=== PATIENT | female | born 1985 | race Caucasian/White ===

== ENCOUNTER 2016-12-24 11:03 | Inpatient (IN) | payer MEDICAID ==
[~2016-12-24] VITALS: Ht 170.2 cm; Wt 116.3 kg
[~2016-12-24 11:03] MED LIST: IBUP-1222 PO; NIFE90TA PO; OXYC-302 PO
[2016-12-24] MEDS ORDERED: SODIUM CHLORIDE 0.9% 1,000ML IVBOLUS ONE ×2 (12:30→14:30)
[2016-12-24] MEDS ORDERED: MORPHINE SULFATE 4 MG/ML, 1ML IVPush PRN ×2 (12:30→17:00)
[2016-12-24] MEDS ORDERED: ONDANSETRON 2MG/ML, 2ML IVPush ONE (12:30)
[2016-12-24] MEDS ORDERED: SODIUM CHLORIDE FLUSH 10ML SYR IVF ONE (12:30)
[2016-12-24] MEDS ORDERED: ONDANSETRON 2MG/ML, 2ML ONE (12:59)
[2016-12-24] MEDS ORDERED: MORPHINE SULFATE 4 MG/ML, 1ML ONE (12:59)
[2016-12-24 13:10] LABS: ASPARTATE AMINO TRANSFERASE 11 U/L (15-37); BLOOD UREA NITROGEN 16 mg/dL (7-18)
[2016-12-24 13:15] LABS: PATH.CAST-FLAG NOT PRESENT; SPERM-FLAG NOT PRESENT; SRC-FLAG NOT PRESENT; XTAL-FLAG NOT PRESENT; YLC-FLAG NOT PRESENT
[2016-12-24] MEDS ORDERED: POTASSIUM CHLORIDE 20 MEQ TAB.ER.PRT PO ONE (14:30)
[2016-12-24] MEDS ORDERED: POTASSIUM CHLORIDE 20 MEQ TAB.ER.PRT ONE (14:43)
[2016-12-24 16:11] VITALS: BP 134/78
[2016-12-24] MEDS ORDERED: ACETAMINOPHEN 325 MG TABLET PO PRN (17:00)
[2016-12-24] MEDS ORDERED: ONDANSETRON 2MG/ML, 2ML IVP PRN (17:00)
[2016-12-24] MEDS ORDERED: POLYETHYLENE GLYCOL 17 GM PACKET PO PRN (17:00)
[2016-12-24] MEDS ORDERED: ENALAPRILAT 1.25 MG/ML, 2ML IVPush PRN (17:00)
[2016-12-24] MEDS: HYDROcodone/APAP 5/325 TABLET PO PRN (17:46)
[2016-12-24] MEDS ORDERED: CIPROFLOXACIN LACTATE 200 MG in DEXTROSE 5% 100 ML IV SCH (18:00)
[2016-12-24] MEDS: CEFTRIAXONE PMX 2GM/50ML 50 ML IV SCH (18:23)
[2016-12-24] MEDS: HEPARIN 5,000 UNITS/ML, 1ML SQ SCH (18:24)
[2016-12-24 20:44] VITALS: BP 100/61
[2016-12-24] MEDS: NS + 20MEQ KCL 1,000 ML IV SCH (22:23)
[2016-12-25 00:29] VITALS: BP 101/62
[2016-12-25] MEDS: HYDROcodone/APAP 5/325 TABLET PO PRN ×4 (00:41→23:42)
[2016-12-25] MEDS: ONDANSETRON ODT 4 MG PO PRN ×5 (00:41→23:41)
[2016-12-25] MEDS: HEPARIN 5,000 UNITS/ML, 1ML SQ SCH ×4 (02:30→19:40)
[2016-12-25] MEDS: NS + 20MEQ KCL 1,000 ML IV SCH ×2 (04:54→19:40)
[2016-12-25 05:37] LABS: BLOOD UREA NITROGEN 16 mg/dL (7-18)
[2016-12-25 06:29] LABS: DIFF TOTAL CELLS COUNTED 100 CELL DIFF
[2016-12-25 06:30] LABS: VERIFY COUNTS? YES
[2016-12-25 06:31] LABS: ANISOCYTOSIS 1+
[2016-12-25 06:32] LABS: LARGE PLATELETS 1+
[2016-12-25] MEDS ORDERED: MAGNESIUM SULFATE PMX 2GM/50ML 50 ML IV ONE (07:00)
[2016-12-25 07:41] VITALS: BP 112/74
[2016-12-25] MEDS ORDERED: SODIUM CHLORIDE 0.9% 1,000ML IVBOLUS ONE (08:00)
[2016-12-25] MEDS: SENNA/DOCUSATE TABLET PO SCH (09:00)
[2016-12-25] MEDS ORDERED: CEFDINIR 300 MG CAPSULE PO SCH (09:00)
[2016-12-25 12:52] VITALS: BP 127/82
[2016-12-25] MEDS: CEFTRIAXONE PMX 2GM/50ML 50 ML IV SCH (17:21)
[2016-12-25 20:56] VITALS: BP 116/77
[2016-12-26 02:33] VITALS: BP 109/70
[2016-12-26] MEDS: ONDANSETRON ODT 4 MG PO PRN ×3 (03:37→12:41)
[2016-12-26] MEDS: HYDROcodone/APAP 5/325 TABLET PO PRN ×2 (03:37→08:36)
[2016-12-26] MEDS: NS + 20MEQ KCL 1,000 ML IV SCH (03:37)
[2016-12-26] MEDS: HEPARIN 5,000 UNITS/ML, 1ML SQ SCH ×2 (05:00→12:42)
[2016-12-26 06:23] LABS: BLOOD UREA NITROGEN 14 mg/dL (7-18)
[2016-12-26] MEDS ORDERED: POTASSIUM CHLORIDE 20 MEQ in SODIUM CHLORIDE 0.9% 250 ML IV ONE (07:00)
[2016-12-26] MEDS ORDERED: POTASSIUM CHLORIDE 20 MEQ TAB.ER.PRT PO ONE (07:00)
[2016-12-26] MEDS ORDERED: CEFDINIR 300 MG CAPSULE PO SCH (07:00)
[2016-12-26 08:14] VITALS: BP 111/74
[2016-12-26] MEDS: SENNA/DOCUSATE TABLET PO SCH (08:37)
[2016-12-26] MEDS ORDERED: CEFD300C37 PO (14:05)
[2016-12-26] MEDS ORDERED: ONDA4TAB13 PO (14:05)
[2016-12-26] MEDS ORDERED: POTA10TA90 PO (14:05)
[2016-12-26] MEDS ORDERED: NS + 20MEQ KCL 1,000 ML IV SCH (20:00)
== END 2016-12-26 15:32 | disposition home or self-care (01) | DRG 690 ==
LOC: ED 13:32 → EDIP 14:30 → 3NE 15:56
PROVIDERS: ADMIT Family Medicine; ATTEND Family Medicine
DX: N12 Tubulo-interstitial nephritis, not specified as acute or chronic (principal); E87.1 Hypo-osmolality and hyponatremia; N17.9 Acute kidney failure, unspecified; E87.6 Hypokalemia; N20.0 Calculus of kidney; E86.0 Dehydration; Z88.8 Allergy status to other drugs, medicaments and biological substances; Z87.442 Personal history of urinary calculi
CPT/HCPCS: 36415; 80048; 80053; 81001; 83605; 83735; 85025; 87077; 87086; 87186; 93005; 96361; 96374; 96375; J0696; J1644; J2405; J3480; Q0162; J3475; J7030; J7050

== ENCOUNTER 2017-07-19 06:11 | Inpatient (IN) | payer MEDICAID ==
[~2017-07-19] VITALS: Ht 170.2 cm; Wt 109.6 kg
[~2017-07-19 06:11] MED LIST changes: +CEFD300C37 PO; +ONDA4TAB13 PO; +POTA10TA6 PO
[2017-07-19] MEDS ORDERED: SODIUM CHLORIDE 0.9% 1,000 ML IV ONE (06:47)
[2017-07-19] MEDS ORDERED: SODIUM CHLORIDE FLUSH 10ML SYR IVF ONE ×2 (07:00→14:30)
[2017-07-19] MEDS ORDERED: ONDANSETRON 2MG/ML, 2ML IVPush ONE ×2 (07:00→11:00)
[2017-07-19 07:22] LABS: HEMATOCRIT 44.6 % (34.6-47.8); HEMOGLOBIN 14.8 g/dL (11.7-16.4); WHITE BLOOD COUNT 9.8 x10^3/uL (3.4-10)
[2017-07-19 07:32] LABS: BLOOD UREA NITROGEN 19 mg/dL (7-18)
[2017-07-19] MEDS ORDERED: HYDROmorphone 1 MG/ML, 1ML ONE ×4 (07:35→15:00)
[2017-07-19] MEDS ORDERED: ONDANSETRON 2MG/ML, 2ML ONE ×4 (07:35→17:48)
[2017-07-19] MEDS: HYDROmorphone 1 MG/ML, 1ML IVPush PRN ×2 (07:38→09:18)
[2017-07-19] MEDS ORDERED: HYDROmorphone 1 MG/ML, 1ML IVPush PRN (11:00)
[2017-07-19] MEDS ORDERED: CEFTRIAXONE PMX 1GM/50ML 50 ML IVPB ONE (14:00)
[2017-07-19] MEDS ORDERED: GENTAMICIN 180 MG in SODIUM CHLORIDE 0.9% 100 ML IV ONE (14:00)
[2017-07-19 15:00] VITALS: BP 142/87
[2017-07-19] MEDS ORDERED: CEFTRIAXONE PMX 1GM/50ML 50 ML IV SCH (15:00)
[2017-07-19] MEDS ORDERED: FENTANYL PF 100 MCG/2ML IVPush PRN (15:00)
[2017-07-19] MEDS ORDERED: BISACODYL 10 MG SUPP PR PRN (15:00)
[2017-07-19] MEDS ORDERED: DOCUSATE 100 MG CAPSULE PO PRN (15:00)
[2017-07-19] MEDS ORDERED: LABETALOL 5MG/ML, 20ML IVPush PRN (15:00)
[2017-07-19] MEDS ORDERED: POLYETHYLENE GLYCOL 17 GM PACKET PO PRN (15:00)
[2017-07-19] MEDS ORDERED: ACETAMINOPHEN 325 MG TABLET PO PRN ×2 (15:00→17:30)
[2017-07-19] MEDS: NS + 20MEQ KCL 1,000 ML IV SCH (15:25)
[2017-07-19] MEDS ORDERED: IBUP-1223 PO (15:48)
[2017-07-19] MEDS ORDERED: ACET650S21 PO (15:48)
[2017-07-19 16:15] VITALS: BP 129/84
[2017-07-19] MEDS: ONDANSETRON 2MG/ML, 2ML IVPush PRN (16:31)
[2017-07-19] MEDS ORDERED: MIDAZOLAM 1 MG/ML, 2ML ONE (16:54)
[2017-07-19] MEDS ORDERED: FENTANYL PF 250 MCG/5ML ONE (16:56)
[2017-07-19] MEDS ORDERED: PROMETHAZINE 25 MG/ML, 1ML IV PRN (17:30)
[2017-07-19] MEDS ORDERED: HYDROmorphone 1 MG/ML, 1ML IV PRN (17:30)
[2017-07-19] MEDS ORDERED: PROPOFOL 10 MG/ML, 20ML ONE (17:30)
[2017-07-19] MEDS ORDERED: ONDANSETRON 2MG/ML, 2ML IVPush PRN (17:30)
[2017-07-19] MEDS ORDERED: FENTANYL PF 100 MCG/2ML IV PRN (17:30)
[2017-07-19] MEDS ORDERED: OXYcodone 5 MG/5 ML ORAL.SOL UDC PO PRN (17:30)
[2017-07-19] MEDS ORDERED: DEXAMETHASONE 4 MG/ML, 1ML ONE ×2 (17:31)
[2017-07-19] MEDS ORDERED: FENTANYL PF 100 MCG/2ML ONE (17:48)
[2017-07-19] MEDS ORDERED: PROMETHAZINE 25 MG/ML, 1ML ONE (17:51)
[2017-07-19 19:30] VITALS: BP 116/72
[2017-07-19 20:00] VITALS: BP 105/65
[2017-07-19] MEDS: TAMSULOSIN 0.4 MG CAP.ER.24H PO SCH (20:46)
[2017-07-19] MEDS: HYDROcodone/APAP 5/325 TABLET PO PRN (20:47)
[2017-07-19 21:50] VITALS: BP 117/81
[2017-07-20 00:09] VITALS: BP 103/69
[2017-07-20] MEDS: ONDANSETRON 2MG/ML, 2ML IVPush PRN ×4 (02:34→23:48)
[2017-07-20] MEDS: NS + 20MEQ KCL 1,000 ML IV SCH (02:34)
[2017-07-20] MEDS: HYDROcodone/APAP 5/325 TABLET PO PRN ×5 (02:34→21:06)
[2017-07-20 04:00] VITALS: BP 107/50
[2017-07-20 04:56] LABS: HEMATOCRIT 38.4 % (34.6-47.8); HEMOGLOBIN 12.7 g/dL (11.7-16.4); WHITE BLOOD COUNT 14.3 x10^3/uL (3.4-10)
[2017-07-20 05:00] LABS: BLOOD UREA NITROGEN 18 mg/dL (7-18)
[2017-07-20 07:30] VITALS: BP 109/71
[2017-07-20] MEDS ORDERED: CEFTRIAXONE PMX 2GM/50ML 50 ML IV SCH (08:30)
[2017-07-20] MEDS: TAMSULOSIN 0.4 MG CAP.ER.24H PO SCH (09:01)
[2017-07-20] MEDS: HEPARIN 5,000 UNITS/ML, 1ML SQ SCH ×2 (10:38→21:06)
[2017-07-20 11:34] VITALS: BP 122/69
[2017-07-20 17:09] VITALS: BP 130/91
[2017-07-20] MEDS: SODIUM CHLORIDE 0.9% 1,000 ML IV SCH (17:31)
[2017-07-20] MEDS: PIPERACILLIN/TAZO/PMX 4.5GM 100 ML IV SCH ×2 (17:52→23:48)
[2017-07-20 18:59] VITALS: BP 104/64
[2017-07-21] MEDS: HYDROcodone/APAP 5/325 TABLET PO PRN ×2 (01:05→05:35)
[2017-07-21] MEDS: SODIUM CHLORIDE 0.9% 1,000 ML IV SCH ×4 (01:05→21:42)
[2017-07-21 01:36] VITALS: BP 112/68
[2017-07-21 05:34] LABS: BLOOD UREA NITROGEN 15 mg/dL (7-18)
[2017-07-21] MEDS: PIPERACILLIN/TAZO/PMX 4.5GM 100 ML IV SCH ×3 (05:34→17:49)
[2017-07-21] MEDS: ONDANSETRON 2MG/ML, 2ML IVPush PRN ×3 (05:35→16:59)
[2017-07-21 05:38] LABS: HEMATOCRIT 34.3 % (34.6-47.8); HEMOGLOBIN 11.4 g/dL (11.7-16.4); WHITE BLOOD COUNT 7.1 x10^3/uL (3.4-10)
[2017-07-21 07:17] VITALS: BP 106/69
[2017-07-21] MEDS: TAMSULOSIN 0.4 MG CAP.ER.24H PO SCH (07:47)
[2017-07-21] MEDS: morphine SULFATE 10 MG/ML, 1ML IVPush PRN ×5 (10:03→21:42)
[2017-07-21] MEDS: HEPARIN 5,000 UNITS/ML, 1ML SQ SCH ×2 (10:08→21:42)
[2017-07-21 12:21] VITALS: BP 104/68
[2017-07-21 18:22] VITALS: BP 104/66
[2017-07-22 00:19] VITALS: BP 117/72
[2017-07-22] MEDS: morphine SULFATE 10 MG/ML, 1ML IVPush PRN ×8 (00:52→22:39)
[2017-07-22] MEDS: PIPERACILLIN/TAZO/PMX 4.5GM 100 ML IV SCH ×4 (00:52→18:01)
[2017-07-22] MEDS: SODIUM CHLORIDE 0.9% 1,000 ML IV SCH ×3 (04:46→20:20)
[2017-07-22 05:50] LABS: BLOOD UREA NITROGEN 11 mg/dL (7-18)
[2017-07-22 05:58] LABS: HEMATOCRIT 32.9 % (34.6-47.8); WHITE BLOOD COUNT 4.5 x10^3/uL (3.4-10)
[2017-07-22 06:38] VITALS: BP 97/60
[2017-07-22] MEDS: ONDANSETRON 2MG/ML, 2ML IVPush PRN ×2 (08:13→18:06)
[2017-07-22] MEDS: TAMSULOSIN 0.4 MG CAP.ER.24H PO SCH ×2 (08:13→08:17)
[2017-07-22] MEDS: HEPARIN 5,000 UNITS/ML, 1ML SQ SCH ×2 (10:05→22:08)
[2017-07-22 13:38] VITALS: BP 133/90
[2017-07-22 19:28] VITALS: BP 103/62
[2017-07-23] MEDS: PIPERACILLIN/TAZO/PMX 4.5GM 100 ML IV SCH ×5 (00:10→23:45)
[2017-07-23] MEDS: ONDANSETRON 2MG/ML, 2ML IVPush PRN ×4 (00:10→23:45)
[2017-07-23 01:46] VITALS: BP 122/73
[2017-07-23] MEDS: morphine SULFATE 10 MG/ML, 1ML IVPush PRN ×2 (01:59→06:21)
[2017-07-23] MEDS: SODIUM CHLORIDE 0.9% 1,000 ML IV SCH ×3 (03:41→17:38)
[2017-07-23 04:59] LABS: HEMOGLOBIN 10.7 g/dL (11.7-16.4); WHITE BLOOD COUNT 4.2 x10^3/uL (3.4-10)
[2017-07-23 05:14] LABS: BLOOD UREA NITROGEN 12 mg/dL (7-18)
[2017-07-23 06:39] VITALS: BP 110/72
[2017-07-23] MEDS: TAMSULOSIN 0.4 MG CAP.ER.24H PO SCH (07:52)
[2017-07-23] MEDS: HEPARIN 5,000 UNITS/ML, 1ML SQ SCH ×2 (09:47→22:15)
[2017-07-23] MEDS: HYDROmorphone 2MG TABLET PO PRN ×5 (09:47→23:45)
[2017-07-23 14:06] VITALS: BP 126/84
[2017-07-23 19:27] VITALS: BP 118/77
[2017-07-24] MEDS: SODIUM CHLORIDE 0.9% 1,000 ML IV SCH ×3 (00:24→11:59)
[2017-07-24 01:30] VITALS: BP 116/77
[2017-07-24] MEDS: HYDROmorphone 2MG TABLET PO PRN ×3 (02:53→10:19)
[2017-07-24] MEDS: ONDANSETRON 2MG/ML, 2ML IVPush PRN (06:11)
[2017-07-24] MEDS: PIPERACILLIN/TAZO/PMX 4.5GM 100 ML IV SCH (06:11)
[2017-07-24 06:36] VITALS: BP 117/81
[2017-07-24] MEDS: TAMSULOSIN 0.4 MG CAP.ER.24H PO SCH (08:10)
[2017-07-24] MEDS: HEPARIN 5,000 UNITS/ML, 1ML SQ SCH (08:11)
[2017-07-24] MEDS ORDERED: HYDROcodone/APAP 5/325 TABLET PO PRN (10:30)
[2017-07-24] MEDS ORDERED: LEVOFLOXACIN 250 MG TABLET PO SCH (11:00)
[2017-07-24 14:57] VITALS: BP 134/78
[2017-07-24] MEDS ORDERED: ONDANSETRON ODT 4 MG PO PRN (16:30)
[2017-07-24] MEDS ORDERED: TAMS-11 PO (16:32)
[2017-07-24] MEDS ORDERED: ONDA4TAB13 PO (16:32)
[2017-07-24] MEDS ORDERED: HYDR-3240 PO (16:32)
[2017-07-24] MEDS ORDERED: LEVO250T23 PO (16:32)
== END 2017-07-24 17:40 | disposition home or self-care (01) | DRG 694 ==
LOC: ED 06:34 → INTOOBSV 14:26 → EDIP 14:26 → OBSVTOIN 14:26 → 4NOR 14:55
PROVIDERS: ADMIT Internal Medicine; ATTEND Internal Medicine
PROC: 0T9B70Z Drainage of Bladder with Drainage Device, Via Natural or Artificial Opening (ICD-10-PCS; 2017-07-19)
PROC: 0T788DZ Dilation of Bilateral Ureters with Intraluminal Device, Via Natural or Artificial Opening Endoscopic (ICD-10-PCS; principal; 2017-07-19 17:00)
DX: N13.2 Hydronephrosis with renal and ureteral calculous obstruction (principal); N17.9 Acute kidney failure, unspecified; E87.2 Acidosis; E28.2 Polycystic ovarian syndrome; F17.210 Nicotine dependence, cigarettes, uncomplicated; N18.9 Chronic kidney disease, unspecified; Z66 Do not resuscitate; Z82.49 Family history of ischemic heart disease and other diseases of the circulatory system; Z88.8 Allergy status to other drugs, medicaments and biological substances; Z83.3 Family history of diabetes mellitus; Z86.19 Personal history of other infectious and parasitic diseases
CPT/HCPCS: 36415; 74000; 74176; 76000; 80048; 81001; 82040; 83605; 84703; 85025; 87040; 87077; 87086; 87186; 96361; 96374; 96375; 96376; J0696; J1100; J1170; J1644; J2250; J2405; J2543; J2550; J2704; J3010; J3480; C1769; C2617; J2270; J7030

== ENCOUNTER → 2017-09-01 | Outpatient (CLI) | payer MEDICAID ==
[~2017-09-01] MED LIST changes: +ACET650S21 PO; +HYDR-3240 PO; +IBUP-1223 PO; +LEVO250T23 PO; +TAMS-11 PO
== END | disposition home or self-care (01) ==
LOC: CFH 11:50
PROVIDERS: ATTEND Urology
DX: N20.2 Calculus of kidney with calculus of ureter (principal); Z98.890 Other specified postprocedural states
CPT/HCPCS: 74018

== ENCOUNTER → 2017-11-07 | Outpatient (CLI) | payer MEDICAID | END | disposition home or self-care (01) | LOC: CFH 10:45 | PROVIDERS: ATTEND Urology | DX: N20.9 Urinary calculus, unspecified (principal) | CPT/HCPCS: 74018 ==